=== PATIENT | female | born 1960 ===

== ENCOUNTER 2021-05-24 13:23 | Outpatient (CLI) | payer OTHER, SELFPAY ==
--- NOTE | 2021-05-25 11:21 | WPDPFTINT ---
PFT Procedure Performed PFT Procedure Performed Plethysmography (Lung Vol) Diffusing Cap (DLCO) Flow Vol Loop Spirometry w/o Bronchodil PFT Interpretation Lung volumes were measured with the body plethysmography method. Lung volumes are unremarkable. Spirometry showed normal expiratory flow rates and a normal FEV1 to FVC ratio of 83%. No post bronchodilator study was carried out. Lung diffusion capacity is borderline normal at 76% predicted; the flow volume loop is unremarkable. Impression: Spirometry, lung volumes, and lung diffusion capacity all within the normal range.
== END 2021-05-24 13:24 | disposition home or self-care (01) ==
LOC: ANHPFT 13:26
PROVIDERS: Visit Provider Physician Assistant
DX: R06.09 Other forms of dyspnea (principal)
CPT/HCPCS: 94375; 94726; 94729